=== PATIENT | male | born 1990 | race Caucasian/White ===

== ENCOUNTER 2019-03-24 06:33 | Day surgery (SDC) | payer OTHER ==
[~2019-03-24] VITALS: Ht 167.6 cm; Wt 91.0 kg
[2019-03-24] VITALS (7 sets, daily range): BP systolic 124–132; BP diastolic 70–81; PULSE 68–89; TEMP 98.6–98.7
[2019-03-24] MEDS ORDERED: PERCOCET 325 MG1 TA2 PO (07:09)
[2019-03-24] MEDS ORDERED: FLOMAX 0.40.4 MG/CAP PO (07:09)
[2019-03-24] MEDS ORDERED: MOTRIN 200200 MG/TAB PO (07:10)
== END 2019-03-24 11:07 | disposition home or self-care (01) ==
LOC: SDCO 06:33
DX: N20.1 Calculus of ureter (principal)
CPT/HCPCS: C1769; J0690; J1100; J2405; J2704; J3010; Q9967

== ENCOUNTER 2019-06-28 10:12 | Day surgery (SDC) | payer OTHER ==
[~2019-06-28] VITALS: Ht 167.6 cm; Wt 95.3 kg
[2019-06-28] VITALS (10 sets, daily range): BP systolic 118–133; BP diastolic 65–87; PULSE 56–95; TEMP 97.2–98.4
[~2019-06-28 10:12] MED LIST: FLOMAX 0.40.4 MG/CAP PO; MOTRIN 200200 MG/TAB PO; PERCOCET 325 MG1 TA2 PO
--- NOTE | 2019-06-28 12:19 | NUR ---
Patient to the OR at this time with SIDDHARTH Snow.
--- NOTE | 2019-06-28 14:55 | NUR ---
returned to room per bed from PACU, awake and alert, IV infusing per dial-a-flow at 100ml/hr, O2 on at 2L/NC and O2 sat99%, incion to neck is CD&I with ice on, suture removal set at bedside, SCDs on bilaterally, requesting water to drink
--- NOTE | 2019-06-28 15:15 | NUR ---
takes water and tolerates well, watching TV, full assessment completed, see interventions for further info, denies needs
--- NOTE | 2019-06-28 16:15 | NUR ---
and son in to visit, O2 sats remain high 90s, O2 off and will continue to monitor
--- NOTE | 2019-06-28 16:45 | NUR ---
assisted up to bathroom by MECHANICAL DESIGN DRAFTER and voided qs, then returned to bed, c/o some minor pain to neck after being up and moving around, medicated with hydrocodone 5mg 1 tab
--- NOTE | 2019-06-28 17:45 | NUR ---
states pain med given earlier has helped relieve pain in neck
--- NOTE | 2019-06-28 18:56 | NUR ---
continues to rest in bed and watch TV, bedside shift report given to SIDDHARTH Lee
--- NOTE | 2019-06-28 20:00 | NUR ---
Pt. sitting up in bed at this time. Pt. is A&OX3, assessment complete. INT to rt. forearm patent. Incision to neck CDI. Pt. with has icepack to neck at this time. Pt. denies pain or other needs, call light within reach.
[2019-06-29 00:27] VITALS: BP 118/60; PULSE 100; TEMP 98.3
[2019-06-29 04:12] VITALS: BP 103/49; PULSE 95; TEMP 98.4
[2019-06-29 07:23] VITALS: BP 114/59; PULSE 85; TEMP 97.3
[2019-06-29] MEDS ORDERED: NORCO 325 MG-51 TAB PO (09:18)
--- NOTE | 2019-06-29 10:37 | NUR ---
Initial visit; Patient thanked Eyeglass Cutter for stopping and offering comfort and thanking him for serving at [facility] for his country. He is deeply appreciated. Patient states he would be ok with Eyeglass Cutter keeping him in her prayers.
[2019-06-29 11:59] VITALS: BP 117/60; PULSE 92; TEMP 97.8
--- NOTE | 2019-06-29 13:41 | NUR ---
Patient ready for discharge. rounded this am and orders obtained. Patient has done well. Tolerated meals, no n/v. Neck incisions edges well approximated. Steristrips intact, removed sutures. Ice pack for pain relief & One tab norco per request. All discharge paperwork reviewed. Script for norco sent with patient & medication safety reviewed. Work note sent with patient & orders to have a Ca check in one week. One week follow up appt also scheduled. We discussed signs & symptoms of infection & low ca & when to notify physician. Int dc. Patient taking him home. they deny questions and concerns.
== END 2019-06-29 13:46 | disposition home or self-care (01) ==
LOC: SDCO 10:12 → SURG 14:55 → SDCO 06-29 13:46
DX: E21.0 Primary hyperparathyroidism (principal); D15.0 Benign neoplasm of thymus; Z80.0 Family history of malignant neoplasm of digestive organs; Z82.49 Family history of ischemic heart disease and other diseases of the circulatory system; F17.290 Nicotine dependence, other tobacco product, uncomplicated
CPT/HCPCS: OP; J0330; J0690; J1100; J1885; J2405; J2704; J3010; J7120